=== PATIENT | male | born 1985 | race Two or more races ===

== ENCOUNTER 2017-11-04 21:42 | Emergency (ER) | payer SELFPAY ==
[~2017-11-04] VITALS: Ht 180.3 cm; Wt 186.5 kg
[2017-11-04 22:51] VITALS: BP 130/68
== END 2017-11-05 00:16 | disposition home or self-care (01) ==
LOC: ER 21:42
DX: M62.838 Other muscle spasm (principal)
CPT/HCPCS: 72040; 72125

== ENCOUNTER 2018-04-24 17:08 | Inpatient (IN) | payer MEDICAID, OTHER ==
[~2018-04-24] VITALS: Ht 180.3 cm; Wt 176.0 kg
[2018-04-24] MEDS ORDERED: DEXAMETHASONE SOD PHOS 10MG/1ML VIAL INJ IM ONE (18:45)
[2018-04-24] MEDS ORDERED: KETOROLAC TROMETH 60MG/2ML VIAL IM ONE (18:45)
[2018-04-24 19:25] LABS: Urine Bacteria NONE SEEN /hpf (None Seen); Urine Blood Negative /uL (Negative); Urine Mucus FEW (None Seen); Urine Specific Gravity 1.011 (1.001-1.035); Urine WBC 2 /hpf (0 - 3)
[2018-04-24 20:51] LABS: Basophils # (auto) 0.1 uL; Basophils % (auto) 0.8 % (0.0-2.0); Eosinophils # (auto) 0.2 uL; Hemoglobin 12.9 g/dL (13.5-17.5); Nucleated Red Blood Cells % 0.1 %
[2018-04-24 20:53] LABS: Eosinophils % (auto) 2.8 % (0.0-7.0); Hematocrit 40.3 % (41.0-53.0); Lymphocytes # (auto) 1.6 uL; Mean Corpuscular Hemoglobin 24.4 pg (28.0-32.0); Mean Corpuscular Hgb Conc. 32.1 g/dL (32.0-36.0); Mean Corpuscular Volume 75.9 fL (80.0-100.0); Monocytes # (auto) 1.2 uL; Monocytes % (auto) 15.1 % (0.0-12.0); Neutrophils # (auto) 4.9 uL; Neutrophils % (auto) 61.3 % (37.0-80.0); Platelet Count (auto) 304 10^3/uL (140-450); Red Blood Cells 5.31 10^6/uL (4.5-5.90); Red Cell Distribution Width 17.6 % (11.8-14.3)
[2018-04-24 21:13] LABS: Albumin 3.4 g/dL (3.4-5.0); BUN/Creatinine Ratio 5.7; Bilirubin, Total 0.2 mg/dL (0.2-1.0); Calcium 8.7 mg/dL (8.5-10.1); Potassium 3.6 mmol/L (3.5-5.1); Total Protein 8.2 g/dL (6.4-8.2)
[2018-04-24] MEDS ORDERED: ACETAMINOPHEN 500 MG TAB PO PRN (23:15)
[2018-04-24] MEDS ORDERED: ONDANSETRON HCL 4 MG/2 ML VIAL IV PRN (23:15)
[2018-04-25 00:45] VITALS: BP 164/88
[2018-04-25] MEDS: TEMAZEPAM 15 MG CAP PO PRN ×2 (01:06→22:03)
[2018-04-25 05:00] VITALS: BP 135/70
[2018-04-25 07:34] LABS: Basophils # (auto) 0 uL; Eosinophils # (auto) 0 uL; Hemoglobin 12.9 g/dL (13.5-17.5); Mean Corpuscular Volume 76.2 fL (80.0-100.0); Monocytes # (auto) 0.1 uL; Neutrophils # (auto) 5.9 uL; Nucleated Red Blood Cells % 0.1 %; White Blood Cell 6.7 10^3/uL (4.4-10.8)
[2018-04-25 07:37] LABS: Basophils % (auto) 0.1 % (0.0-2.0); Hematocrit 39.9 % (41.0-53.0); Lymphocytes # (auto) 0.6 uL; Lymphocytes % (auto) 9.5 % (10.0-50.0); Mean Corpuscular Hemoglobin 24.6 pg (28.0-32.0); Mean Corpuscular Hgb Conc. 32.3 g/dL (32.0-36.0); Monocytes % (auto) 1.6 % (0.0-12.0); Neutrophils % (auto) 88.8 % (37.0-80.0); Platelet Count (auto) 294 10^3/uL (140-450); Red Blood Cells 5.24 10^6/uL (4.5-5.90); Red Cell Distribution Width 17.6 % (11.8-14.3)
[2018-04-25 07:47] LABS: BUN/Creatinine Ratio 7.5; Calcium 8.7 mg/dL (8.5-10.1)
[2018-04-25 08:30] VITALS: BP 131/72
[2018-04-25 12:58] VITALS: BP 134/77
[2018-04-25 16:53] VITALS: BP 151/79
[2018-04-25] MEDS ORDERED: IOHEXOL 300 MG/ML 100ML BOTTLE IJ ONE (17:13)
[2018-04-25 22:00] VITALS: BP 118/66
[2018-04-26 05:00] VITALS: BP 137/88
[2018-04-26 08:42] VITALS: BP 114/72
[2018-04-26 13:00] VITALS: BP 144/61
[2018-04-26] MEDS: MORPHINE SULF INJ 2 MG/ML SYRINGE 1ML IV PRN ×2 (14:55→21:12)
[2018-04-26 17:00] VITALS: BP 134/77
[2018-04-26 21:45] VITALS: BP 130/73
[2018-04-26] MEDS: TEMAZEPAM 15 MG CAP PO PRN (22:36)
[2018-04-27 04:57] VITALS: BP 149/81
[2018-04-27 09:00] VITALS: BP 133/71
[2018-04-27] MEDS: MORPHINE SULF INJ 2 MG/ML SYRINGE 1ML IV PRN (10:26)
[2018-04-27 12:50] VITALS: BP 133/71
== END 2018-04-27 13:30 | disposition home or self-care (01) | DRG 465 ==
LOC: ER 17:08 → OVERFLOW 17:09 → EAST 23:58
PROVIDERS: ADMIT Nurse Practitioner Family; ATTEND Internal Medicine
DX: N13.2 Hydronephrosis with renal and ureteral calculous obstruction (principal); Z68.43 Body mass index [BMI] 50.0-59.9, adult; E66.3 Overweight; R22.2 Localized swelling, mass and lump, trunk; Z80.43 Family history of malignant neoplasm of testis; Z85.47 Personal history of malignant neoplasm of testis; Z90.79 Acquired absence of other genital organ(s)
CPT/HCPCS: 36415; 70491; 71260; 74176; 76536; 76870; 80048; 80053; 81001; 82105; 83615; 84702; 85025; 96372; J1100; J1885; J2405

== ENCOUNTER 2018-08-14 21:05 | Inpatient (IN) | payer MEDICAID | END 2018-09-10 18:00 | disposition home or self-care (01) | LOC: OVERFLOW 08-15 01:31 → ER 21:05 → EAST 08-15 15:59 | PROC: 02HV33Z Insertion of Infusion Device into Superior Vena Cava, Percutaneous Approach (ICD-10-PCS; principal; 2018-08-25 08:53) | DX: C80.1 Malignant (primary) neoplasm, unspecified (principal); K56.609 Unspecified intestinal obstruction, unspecified as to partial versus complete obstruction; I82.433 Acute embolism and thrombosis of popliteal vein, bilateral; E44.0 Moderate protein-calorie malnutrition; C62.90 Malignant neoplasm of unspecified testis, unspecified whether descended or undescended; E66.01 Morbid (severe) obesity due to excess calories; D72.828 Other elevated white blood cell count; D72.829 Elevated white blood cell count, unspecified; E87.1 Hypo-osmolality and hyponatremia; D50.9 Iron deficiency anemia, unspecified; I80.8 Phlebitis and thrombophlebitis of other sites; Z68.42 Body mass index [BMI] 45.0-49.9, adult; R59.1 Generalized enlarged lymph nodes; Z85.47 Personal history of malignant neoplasm of testis; R10.13 Epigastric pain; Z91.19 Patient's noncompliance with other medical treatment and regimen; Z71.3 Dietary counseling and surveillance; R22.9 Localized swelling, mass and lump, unspecified; F32.9 Major depressive disorder, single episode, unspecified; F41.9 Anxiety disorder, unspecified; I10 Essential (primary) hypertension; I82.439 Acute embolism and thrombosis of unspecified popliteal vein; L03.113 Cellulitis of right upper limb; N13.30 Unspecified hydronephrosis; Z79.01 Long term (current) use of anticoagulants ==

== ENCOUNTER 2018-10-03 22:01 | Inpatient (IN) | payer MEDICAID | END 2018-10-09 17:30 | disposition home or self-care (01) | LOC: ER 22:01 → OVERFLOW 10-04 06:45 → WEST WING 10-04 18:55 | DX: I82.403 Acute embolism and thrombosis of unspecified deep veins of lower extremity, bilateral (principal); C62.90 Malignant neoplasm of unspecified testis, unspecified whether descended or undescended; E66.01 Morbid (severe) obesity due to excess calories; Z68.42 Body mass index [BMI] 45.0-49.9, adult; Z80.43 Family history of malignant neoplasm of testis; Z79.01 Long term (current) use of anticoagulants ==

== ENCOUNTER 2019-08-22 04:41 | Inpatient (IN) | payer SELFPAY ==
[~2019-08-22] VITALS: Ht 180.3 cm; Wt 156.6 kg
[~2019-08-22 04:41] MED LIST: ALBUAER3 IN; DOCU-94 PO; FAM20T PO; FER325T PO; HYDR2TAB58 PO; ONDA-144 PO; PANT40TA2 PO; WARF10TA PO
[2019-08-22] MEDS ORDERED: SODIUM CHLORIDE 0.9% 1,000 ML IV ONE (06:15)
[2019-08-22] MEDS ORDERED: ONDANSETRON HCL 4 MG/2 ML VIAL IV ONE ×2 (06:15→08:30)
[2019-08-22] MEDS ORDERED: MORPHINE SULFATE 4 MG/ML SYR/VIAL IV ONE (06:15)
[2019-08-22 07:18] LABS: Basophils # (auto) 0 uL; Basophils % (auto) 0.3 % (0.0-2.0); Eosinophils # (auto) 0 uL; Eosinophils % (auto) 0.5 % (0.0-7.0); Hematocrit 37.6 % (41.0-53.0); Hemoglobin 12.6 g/dL (13.5-17.5); Lymphocytes # (auto) 0.6 uL; Lymphocytes % (auto) 8.5 % (10.0-50.0); Mean Corpuscular Hemoglobin 28.9 pg (28.0-32.0); Mean Corpuscular Hgb Conc. 33.4 g/dL (32.0-36.0); Mean Corpuscular Volume 86.4 fL (80.0-100.0); Monocytes # (auto) 0.8 uL; Monocytes % (auto) 11.1 % (0.0-12.0); Neutrophils # (auto) 5.5 uL; Neutrophils % (auto) 79.6 % (37.0-80.0); Platelet Count (auto) 162 10^3/uL (140-450); Red Blood Cells 4.36 10^6/uL (4.5-5.90); Red Cell Distribution Width 14.3 % (11.8-14.3)
[2019-08-22 07:32] LABS: Calcium 8.2 mg/dL (8.5-10.1); Potassium 3.9 mmol/L (3.5-5.1)
[2019-08-22 07:39] LABS: Albumin 3.1 g/dL (3.4-5.0); BUN/Creatinine Ratio 10.4; Bilirubin, Total 0.3 mg/dL (0.2-1.0); Total Protein 6.6 g/dL (6.4-8.2)
[2019-08-22 08:35] LABS: Urine Bacteria NONE SEEN /hpf (None Seen); Urine Blood Negative /uL (Negative); Urine WBC 28 /hpf (0 - 3)
[2019-08-22 08:44] LABS: INR 0.97 (0.9-1.15); Partial Thromboplastin Time 26.2 sec (23.64-32.05)
[2019-08-22] MEDS ORDERED: MORPHINE SULFATE 10 MG/ML INJ 1ML SDV IV ONE (09:00)
[2019-08-22] MEDS ORDERED: OXYCODONE W/ ACETAMINOPHEN 5/325MG TABLET PO PRN (09:30)
[2019-08-22] MEDS ORDERED: IOHEXOL 300 MG/ML 100ML BOTTLE IJ ONE (09:42)
[2019-08-22] MEDS ORDERED: cefTRIAXone 1GM/50ML D5W 50 ML IV ONE (09:45)
[2019-08-22] MEDS: PANTOPRAZOLE 40 MG TAB PO SCH (10:27)
[2019-08-22] MEDS ORDERED: ENOXAPARIN SOD 150 MG/1 ML SYRINGE SC ONE (13:00)
--- NOTE | 2019-08-22 15:45 | NUR ---
[facility] admit from ER [facility] admitted to [facility] after SBAR received.primary RN, unit, room, bed, and unit policies regarding patient care and visiting hours.vITAL SIGNS TAKEN BP 136/88,TEMP:97.7,HR 63,RR20 ROOM AIR O2 SAT 92%,CALL LIGHT WITHIN REACH PATIENT REMINDED INSTRUCTED TO CALL FOR ASSISTANCE.Patient weighed by bedscale and encouraged to call if they need something. All questions and concerns addressed, patient verbalized understanding.
[2019-08-22] MEDS: ONDANSETRON HCL 4 MG/2 ML VIAL IV PRN ×2 (16:27→23:01)
[2019-08-22 16:50] VITALS: BP 136/88
--- NOTE | 2019-08-22 19:00 | NUR ---
Opening Shift Note Assumed care of patient, awake and alert. No S/S of distress/SOB or pain. Instructed on POC and to call for assist PRN, will continue to monitor for changes Q1hr and PRN.
--- NOTE | 2019-08-22 19:17 | NUR ---
REPORT GIVEN TO INCOMING NOC SHIFT R.N. NO DISTRESS,STATUS UNCHANGED.
[2019-08-22] MEDS: HYDROmorphone HCL 2 MG/ML VL IV PRN (21:10)
[2019-08-22 22:00] VITALS: BP 114/57
[2019-08-23 05:00] VITALS: BP 100/64
[2019-08-23 06:07] LABS: Hematocrit 36.6 % (41.0-53.0); Hemoglobin 12.4 g/dL (13.5-17.5); Mean Corpuscular Hemoglobin 29.2 pg (28.0-32.0); Mean Corpuscular Hgb Conc. 33.9 g/dL (32.0-36.0); Mean Corpuscular Volume 86.3 fL (80.0-100.0); Platelet Count (auto) 158 10^3/uL (140-450); Red Blood Cells 4.24 10^6/uL (4.5-5.90); Red Cell Distribution Width 14.4 % (11.8-14.3); White Blood Cell 4.1 10^3/uL (4.4-10.8)
[2019-08-23 06:19] LABS: INR 1.04 (0.9-1.15); Partial Thromboplastin Time 32.3 sec (23.64-32.05)
[2019-08-23 06:21] LABS: Calcium 8.4 mg/dL (8.5-10.1)
[2019-08-23 06:23] LABS: BUN/Creatinine Ratio 7.1
--- NOTE | 2019-08-23 07:15 | NUR ---
Opening Shift Note Assumed care of patient,awake,alert oriented, No S/S of distress/SOB c/o right flank pain. Instructed on POC,NPO for expected procedure and to call for assist PRN, will continue to monitor for changes Q1hr and PRN,patient verbalized understanding.
[2019-08-23 07:24] LABS: Basophils % (manual) 0 (0.0-2.0); Blast Cells 0; Eosinophils % (manual) 0 (0-7); Metamyelocytes % 0; Myelocytes % 0; Promyelocytes % 0; Reactive Lymphocytes 0
[2019-08-23 07:44] LABS: Band Neutrophils % (manual) 1; Lymphocytes % (manual) 22 (10.0-50.0); Monocytes % (manual) 18 (0-12)
[2019-08-23] MEDS: HYDROmorphone HCL 2 MG/ML VL IV PRN ×3 (08:10→17:38)
[2019-08-23] MEDS: ONDANSETRON HCL 4 MG/2 ML VIAL IV PRN ×2 (08:11→13:51)
[2019-08-23 09:00] VITALS: BP 115/60
[2019-08-23] MEDS ORDERED: cefTRIAXone 1GM/50ML D5W 50 ML IV SCH (09:00)
--- NOTE | 2019-08-23 09:20 | NUR ---
To Entertainment Reporter via bed for Nephrostomy Tube placement
[2019-08-23] MEDS ORDERED: IODIXANOL 320MG/ML 100ML BTL IV ONE (09:25)
[2019-08-23] MEDS ORDERED: LIDOCAINE 2%HCL (LOCAL ANESTH.) INJ 20ML MDV ONE ×2 (09:25→09:35)
[2019-08-23] MEDS ORDERED: fentaNYL CITRATE 100 MCG/2 ML VL ONE (09:36)
[2019-08-23] MEDS ORDERED: MIDAZOLAM HCL 1MG/1ML-2 ML VIAL ONE (09:36)
--- NOTE | 2019-08-23 12:40 | NUR ---
RECEIVED FROM PACU ACCOMPANIED BY INSTALLATION ENGINEER VIA BED POST NEPHROSTOMY TUBE PLACEMENT TO RIGHT FLANK,AWAKE,ALERT.ORIENTED.CATHETER INTACT,DRAINING CLEAR PEACH COLOR URINE TO DRAINAGE BAG. C/O PAIN AND DISCOMFORT TO SITE.VITAL SIGNS TAKEN BP 126/78,HR57,RR22 TEMP:97.6
--- NOTE | 2019-08-23 13:00 | NUR ---
MD VISIT DR. C[place] HERE TO SEE AND EXAMINED PATIENT RECIEVED ORDER FOR DISCHARGE
[2019-08-23] MEDS ORDERED: APIX5TAB PO (13:13)
[2019-08-23] MEDS ORDERED: CIPR-173 PO (13:37)
[2019-08-23] MEDS ORDERED: ONDA-144 PO (13:37)
[2019-08-23] MEDS: PANTOPRAZOLE 40 MG TAB PO SCH (13:51)
--- NOTE | 2019-08-23 16:30 | NUR ---
EMPTIED TOTAL OF 500 CC LIGHT PEACH URINE COLOR OUTPUT FROM NEPHROSTOMY SINCE RETURN FROM PROCEDURE
[2019-08-23 16:44] VITALS: BP 121/67
[2019-08-23 17:00] VITALS: BP 121/67
--- NOTE | 2019-08-23 18:55 | NUR ---
Discharge instructions given as ordered. Encourage to follow up with PMD as instructed. All questions and concerns addressed. Patient verbalized understanding. Medication reconciliation form completed and copy given to patient. IV removed with catheter intact, pressure dressing applied,Nephrostomy Tube in place,abdominal binder refused to be applied patient stated he will apply it as soon as he gets home. Patient taken to vehicle via wheelchair with all personal belongings, accompanied by staff and family member. No distress noted at time of departure.
== END 2019-08-23 18:55 | disposition home or self-care (01) | DRG 699 ==
LOC: ER 04:41 → OVERFLOW 04:42 → CENTRAL 15:50
PROVIDERS: ADMIT Nurse Practitioner Acute Care; ATTEND Internal Medicine
PROC: 0T9030Z Drainage of Right Kidney with Drainage Device, Percutaneous Approach (ICD-10-PCS; principal; 2019-08-23)
PROC: BT1D1ZZ Fluoroscopy of Right Kidney, Ureter and Bladder using Low Osmolar Contrast (ICD-10-PCS; 2019-08-23)
PROC: BT41ZZZ Ultrasonography of Right Kidney (ICD-10-PCS; 2019-08-23)
DX: T83.022A Displacement of nephrostomy catheter, initial encounter (principal); D68.59 Other primary thrombophilia; Z68.42 Body mass index [BMI] 45.0-49.9, adult; E44.1 Mild protein-calorie malnutrition; N13.6 Pyonephrosis; C62.90 Malignant neoplasm of unspecified testis, unspecified whether descended or undescended; D64.9 Anemia, unspecified; E66.01 Morbid (severe) obesity due to excess calories; J45.909 Unspecified asthma, uncomplicated; Y73.2 Prosthetic and other implants, materials and accessory gastroenterology and urology devices associated with adverse incidents; Z79.01 Long term (current) use of anticoagulants; Z86.718 Personal history of other venous thrombosis and embolism; Z87.891 Personal history of nicotine dependence; Z90.49 Acquired absence of other specified parts of digestive tract
CPT/HCPCS: 36415; 50432; 76775; 76942; 80048; 80053; 81001; 83735; 85007; 85025; 85027; 85610; 85730; 86850; 86900; 86901; 93970; 99152; 99153; C1729; G0378; J0696; J2250; J2405; Q9967

== ENCOUNTER 2021-06-26 18:43 | Inpatient (IN) | payer MEDICARE, MEDICAID ==
[~2021-06-26] VITALS: Ht 177.8 cm; Wt 183.7 kg
[~2021-06-26 18:43] MED LIST changes: +APIX5TAB PO; +CIPR-173 PO; -FAM20T PO; +FAMO20TA10 PO; -WARF10TA PO
[2021-06-26 19:20] LABS: Basophils # (auto) 0 10 ^3/uL (0-0.2); Eosinophils # (auto) 0 10 ^3/uL (0-0.8); Lymphocytes # (auto) 0.6 10 ^3/uL (0.4-5.4); Mean Corpuscular Volume 80.6 fL (80.0-100.0); Monocytes # (auto) 0.7 10 ^3/uL (0-1.3); Neutrophils # (auto) 4.1 10 ^3/uL (1.6-8.6); Nucleated Red Blood Cells % 0.1 %; White Blood Cell 5.4 10^3/uL (4.4-10.8)
[2021-06-26 19:21] LABS: Basophils % (auto) 0.1 % (0.0-2.0); Hematocrit 43.9 % (41.0-53.0); Hemoglobin 14.7 g/dL (13.5-17.5); Lymphocytes % (auto) 11.3 % (10.0-50.0); Mean Corpuscular Hgb Conc. 33.5 g/dL (32.0-36.0); Neutrophils % (auto) 75.6 % (37.0-80.0); Red Blood Cells 5.45 10^6/uL (4.5-5.90); Red Cell Distribution Width 14.4 % (11.8-14.3)
[2021-06-26 19:38] LABS: Albumin 2.9 g/dL (3.4-5.0); BUN/Creatinine Ratio 8.8; Calcium 7.9 mg/dL (8.5-10.1); Potassium 3.9 mmol/L (3.5-5.1)
[2021-06-26 19:41] LABS: Bilirubin, Total 0.7 mg/dL (0.2-1.0); Total Protein 7.6 g/dL (6.4-8.2)
[2021-06-27] MEDS ORDERED: ONDANSETRON HCL 4 MG/2 ML VIAL IV ONE (01:15)
[2021-06-27] MEDS ORDERED: ACETAMINOPHEN 500 MG TAB PO ONE (01:15)
[2021-06-27] MEDS ORDERED: DexAMETHasone SOD PHOS 10MG/1ML VIAL INJ IV ONE (01:30)
[2021-06-27] MEDS ORDERED: AZITHROMYCIN 500MG/ 250ML 250 ML IV ONE (01:30)
[2021-06-27] MEDS ORDERED: ACETAMINOPHEN 325 MG TAB PO PRN (02:45)
[2021-06-27] MEDS ORDERED: MORPHINE SULFATE INJECTION 2 MG/ML SYRG IV PRN (02:45)
[2021-06-27] MEDS ORDERED: TEMAZEPAM 15 MG CAP PO PRN (02:45)
[2021-06-27] MEDS ORDERED: ONDANSETRON HCL 4 MG/2 ML VIAL IV PRN (02:45)
[2021-06-27] MEDS ORDERED: NITROGLYCERIN 0.4 MG SL TAB SL PRN (02:45)
[2021-06-27 03:03] LABS: Urine Bacteria NONE SEEN /hpf (None Seen); Urine Blood Negative /uL (Negative); Urine Mucus FEW (None Seen); Urine Specific Gravity 1.033 (1.001-1.035); Urine WBC 8 /hpf (0 - 3)
[2021-06-27] MEDS: cefTRIAXone 1GM/50ML D5W 50 ML IV SCH ×2 (03:09→08:31)
[2021-06-27] MEDS ORDERED: ENOXAPARIN SOD 40 MG/0.4 ML SYRINGE SC SCH ×2 (10:00→22:00)
[2021-06-27] MEDS ORDERED: PANTOPRAZOLE 40 MG TAB PO SCH (10:00)
[2021-06-27] MEDS: DexAMETHasone SOD PHOS 10MG/1ML VIAL INJ IV SCH (11:00)
[2021-06-27] MEDS ORDERED: REMDESIVIR PER PHARMACY 0 ML IV SCH (11:30)
[2021-06-27] MEDS ORDERED: ACETAMINOPHEN 500 MG TAB PO PRN (11:30)
[2021-06-27 13:00] VITALS: BP 103/71
[2021-06-27] MEDS: AZITHROMYCIN 500MG/ 250ML 250 ML IV SCH (13:00)
[2021-06-27] MEDS ORDERED: REMDESIVIR 200 MG in NS 210ml LOADING DOSE ADULT IV ONE (13:00)
[2021-06-27 17:00] VITALS: BP 143/77
[2021-06-27] MEDS: CHOLECALCIFEROL (VITD3) 2,000 UNIT CAP/TAB PO SCH (18:41)
[2021-06-27] MEDS: ZINC SULFATE 220mg CAP or TAB PO SCH (18:41)
[2021-06-27] MEDS: ASCORBIC ACID 1,000 MG TAB PO SCH (18:41)
[2021-06-27] MEDS: BUDESONIDE (INHALATION) 180 MCG IH IN SCH (19:00)
[2021-06-27] MEDS: ALBUTEROL SULF HFA 90MCG INH 200DOSE IN PRN (19:00)
[2021-06-27 20:25] VITALS: BP 143/77
[2021-06-27 22:00] VITALS: BP 124/76
[2021-06-27] MEDS: APIXABAN 5 MG TAB PO SCH (22:29)
[2021-06-28 05:22] VITALS: BP 127/70
[2021-06-28 07:06] LABS: Basophils # (auto) 0 10 ^3/uL (0-0.2); Basophils % (auto) 0.1 % (0.0-2.0); Eosinophils # (auto) 0 10 ^3/uL (0-0.8); Hematocrit 44.3 % (41.0-53.0); Hemoglobin 14.7 g/dL (13.5-17.5); Lymphocytes # (auto) 0.9 10 ^3/uL (0.4-5.4); Mean Corpuscular Hemoglobin 27.2 pg (28.0-32.0); Mean Corpuscular Hgb Conc. 33.2 g/dL (32.0-36.0); Monocytes # (auto) 1.3 10 ^3/uL (0-1.3); Neutrophils # (auto) 7.5 10 ^3/uL (1.6-8.6); Neutrophils % (auto) 77.9 % (37.0-80.0); Nucleated Red Blood Cells % 0.1 %; Red Cell Distribution Width 14.2 % (11.8-14.3); White Blood Cell 9.6 10^3/uL (4.4-10.8)
[2021-06-28 07:20] LABS: Potassium 4.4 mmol/L (3.5-5.1)
[2021-06-28 07:27] LABS: Albumin 2.7 g/dL (3.4-5.0); BUN/Creatinine Ratio 18.4; Bilirubin, Total 0.3 mg/dL (0.2-1.0); Total Protein 6.7 g/dL (6.4-8.2)
[2021-06-28] MEDS: BUDESONIDE (INHALATION) 180 MCG IH IN SCH ×2 (07:35→22:00)
[2021-06-28] MEDS: ALBUTEROL SULF HFA 90MCG INH 200DOSE IN PRN ×2 (07:35→09:53)
[2021-06-28 09:00] VITALS: BP 118/70
[2021-06-28] MEDS: CHOLECALCIFEROL (VITD3) 2,000 UNIT CAP/TAB PO SCH (10:00)
[2021-06-28] MEDS: DexAMETHasone SOD PHOS 10MG/1ML VIAL INJ IV SCH (10:24)
[2021-06-28] MEDS: cefTRIAXone 1GM/50ML D5W 50 ML IV SCH (10:24)
[2021-06-28] MEDS: APIXABAN 5 MG TAB PO SCH ×2 (10:24→21:43)
[2021-06-28] MEDS: ZINC SULFATE 220mg CAP or TAB PO SCH (10:24)
[2021-06-28] MEDS: IVERMECTIN 3 MG TAB PO SCH (10:26)
[2021-06-28] MEDS: ASCORBIC ACID 1,000 MG TAB PO SCH (10:26)
[2021-06-28] MEDS: AZITHROMYCIN 500MG/ 250ML 250 ML IV SCH (12:00)
[2021-06-28 13:00] VITALS: BP 132/86
[2021-06-28] MEDS: REMDESIVIR 100mg 100 MG in SODIUM CHL 0.9% 230 ML IV SCH (15:30)
[2021-06-28 17:00] VITALS: BP 113/74
[2021-06-28 22:00] VITALS: BP 124/79
[2021-06-29 05:00] VITALS: BP 103/56
[2021-06-29 07:28] LABS: Albumin 2.7 g/dL (3.4-5.0); Potassium 4.5 mmol/L (3.5-5.1)
[2021-06-29 07:32] LABS: BUN/Creatinine Ratio 21.7; Bilirubin, Total 0.3 mg/dL (0.2-1.0); Total Protein 6.6 g/dL (6.4-8.2)
[2021-06-29 09:00] VITALS: BP_SYST 107; BP_SYST 117; BP_DIAS 55; BP_DIAS 77
[2021-06-29] MEDS: cefTRIAXone 1GM/50ML D5W 50 ML IV SCH (09:30)
[2021-06-29] MEDS: DexAMETHasone SOD PHOS 10MG/1ML VIAL INJ IV SCH (09:31)
[2021-06-29] MEDS: APIXABAN 5 MG TAB PO SCH ×2 (09:32→21:32)
[2021-06-29] MEDS: ASCORBIC ACID 1,000 MG TAB PO SCH (09:32)
[2021-06-29] MEDS: ZINC SULFATE 220mg CAP or TAB PO SCH (09:32)
[2021-06-29] MEDS: IVERMECTIN 3 MG TAB PO SCH (09:32)
[2021-06-29] MEDS: CHOLECALCIFEROL (VITD3) 2,000 UNIT CAP/TAB PO SCH (09:33)
[2021-06-29] MEDS: BUDESONIDE (INHALATION) 180 MCG IH IN SCH ×2 (11:05→23:30)
[2021-06-29] MEDS: ALBUTEROL SULF HFA 90MCG INH 200DOSE IN PRN ×2 (11:05→23:31)
[2021-06-29] MEDS: AZITHROMYCIN 500MG/ 250ML 250 ML IV SCH (12:57)
[2021-06-29 13:00] VITALS: BP 119/92
[2021-06-29] MEDS: REMDESIVIR 100mg 100 MG in SODIUM CHL 0.9% 230 ML IV SCH (16:45)
[2021-06-29 17:00] VITALS: BP 134/81
[2021-06-29 22:00] VITALS: BP 115/70
[2021-06-30] VITALS (7 sets, daily range): BP systolic 111–132; BP diastolic 63–82
[2021-06-30 07:21] LABS: Potassium 4.4 mmol/L (3.5-5.1)
[2021-06-30 07:32] LABS: Albumin 2.8 g/dL (3.4-5.0); BUN/Creatinine Ratio 21.8; Bilirubin, Total 0.4 mg/dL (0.2-1.0); Calcium 8.1 mg/dL (8.5-10.1); Total Protein 6.7 g/dL (6.4-8.2)
[2021-06-30] MEDS: BUDESONIDE (INHALATION) 180 MCG IH IN SCH ×2 (07:39→22:30)
[2021-06-30] MEDS: ALBUTEROL SULF HFA 90MCG INH 200DOSE IN PRN (07:39)
[2021-06-30] MEDS: cefTRIAXone 1GM/50ML D5W 50 ML IV SCH (09:50)
[2021-06-30] MEDS: DexAMETHasone SOD PHOS 10MG/1ML VIAL INJ IV SCH (09:51)
[2021-06-30] MEDS: ZINC SULFATE 220mg CAP or TAB PO SCH (09:52)
[2021-06-30] MEDS: APIXABAN 5 MG TAB PO SCH ×2 (09:52→22:10)
[2021-06-30] MEDS: CHOLECALCIFEROL (VITD3) 2,000 UNIT CAP/TAB PO SCH (09:53)
[2021-06-30] MEDS: ASCORBIC ACID 1,000 MG TAB PO SCH (09:53)
[2021-06-30] MEDS: IVERMECTIN 3 MG TAB PO SCH (09:53)
[2021-06-30] MEDS ORDERED: IOHEXOL 350 MG/ML 100ML IJ ONE (11:31)
[2021-06-30] MEDS: AZITHROMYCIN 500MG/ 250ML 250 ML IV SCH (13:07)
[2021-06-30] MEDS: REMDESIVIR 100mg 100 MG in SODIUM CHL 0.9% 230 ML IV SCH (16:07)
[2021-07-01 01:40] VITALS: BP 130/77
[2021-07-01 05:00] VITALS: BP 110/75
[2021-07-01 08:22] LABS: Potassium 4.5 mmol/L (3.5-5.1)
[2021-07-01 08:28] LABS: Albumin 2.8 g/dL (3.4-5.0); BUN/Creatinine Ratio 23.3; Bilirubin, Total 0.5 mg/dL (0.2-1.0); Calcium 8.3 mg/dL (8.5-10.1); Total Protein 6.4 g/dL (6.4-8.2)
[2021-07-01 08:30] VITALS: BP 117/62
[2021-07-01] MEDS: cefTRIAXone 1GM/50ML D5W 50 ML IV SCH (09:35)
[2021-07-01] MEDS: DexAMETHasone SOD PHOS 10MG/1ML VIAL INJ IV SCH (09:36)
[2021-07-01] MEDS: ASCORBIC ACID 1,000 MG TAB PO SCH (09:36)
[2021-07-01] MEDS: APIXABAN 5 MG TAB PO SCH (09:36)
[2021-07-01] MEDS: ZINC SULFATE 220mg CAP or TAB PO SCH (09:36)
[2021-07-01] MEDS: CHOLECALCIFEROL (VITD3) 2,000 UNIT CAP/TAB PO SCH (09:36)
[2021-07-01] MEDS: AZITHROMYCIN 500MG/ 250ML 250 ML IV SCH (09:37)
[2021-07-01 12:30] VITALS: BP 138/75
[2021-07-01] MEDS ORDERED: ZINC220T6 PO (15:02)
[2021-07-01] MEDS ORDERED: APIX5TAB PO (15:02)
[2021-07-01] MEDS ORDERED: ASCO10003 PO (15:02)
[2021-07-01] MEDS ORDERED: CHOL1CAP47 PO (15:02)
[2021-07-01] MEDS ORDERED: DEX4T PO (15:03)
[2021-07-01] MEDS ORDERED: ALBUAER3 IN (15:03)
[2021-07-01] MEDS ORDERED: PANT40TA2 PO (15:03)
[2021-07-01] MEDS: ALBUTEROL SULF HFA 90MCG INH 200DOSE IN PRN (15:41)
[2021-07-01] MEDS: BUDESONIDE (INHALATION) 180 MCG IH IN SCH (15:41)
[2021-07-01] MEDS: REMDESIVIR 100mg 100 MG in SODIUM CHL 0.9% 230 ML IV SCH (15:46)
[2021-07-01 16:32] VITALS: BP 120/76
[2021-07-01 17:00] VITALS: BP 113/77
== END 2021-07-01 18:00 | disposition home or self-care (01) | DRG 177 ==
LOC: ER 18:44 → TELE 06-27 02:35 → TELE-EAST 06-27 11:34
PROVIDERS: ADMIT Nurse Practitioner; ATTEND Internal Medicine
PROC: XW033E5 Introduction of Remdesivir Anti-infective into Peripheral Vein, Percutaneous Approach, New Technology Group 5 (ICD-10-PCS; principal; 2021-06-27)
DX: U07.1 COVID-19 (principal); J96.01 Acute respiratory failure with hypoxia; J12.82 Pneumonia due to coronavirus disease 2019; E44.0 Moderate protein-calorie malnutrition; Z68.44 Body mass index [BMI] 60.0-69.9, adult; E66.01 Morbid (severe) obesity due to excess calories; D89.839 Cytokine release syndrome, grade unspecified; R53.81 Other malaise; Z85.47 Personal history of malignant neoplasm of testis; Z86.718 Personal history of other venous thrombosis and embolism; Z87.891 Personal history of nicotine dependence; Z90.49 Acquired absence of other specified parts of digestive tract
CPT/HCPCS: 36415; 36600; 71045; 80053; 81001; 82728; 82805; 83605; 83615; 85025; 85379; 87040; 87426; 93970; 94640; 96365; 96366; 96367; 96372; 96375; 96376; G0378; J0696; J1100; J2405